=== PATIENT | male | born 1980 | race Caucasian/White ===

== ENCOUNTER 2021-10-07 08:24 | Emergency (ER) | payer MEDICAID ==
[~2021-10-07] VITALS: Ht 165.1 cm; Wt 65.8 kg
--- NOTE | 2021-10-07 08:25 | NUR ---
TO ER BED 9, BIB SELF C/O L SIDED CHEST PAIN NON RADIATING STARTED YESTERDAY ON AND OFF "IM OUT OF BLOOD THINNERS FOR 2 DAYS.", AAOX3, BREATHING EVEN AND NON LABORED, CONNECTED TO MONITOR, AWAITING MD SINGH
--- NOTE | 2021-10-07 08:47 | NUR ---
SALINE LOCK ESTABLISHED, BLOOD DRAWN AND SENT TO LAB
[2021-10-07 09:09] LABS: BASOPHILS % (AUTO) 0.4 % (0.0-2.0); EOSINOPHILS % (AUTO) 1.1 % (0.0-6.0); HEMATOCRIT 41 % (39-51); HEMOGLOBIN 13.9 g/dL (13.5-17.5); LYMPHOCYTES # (AUTO) 1.1 K/uL (0.8-4.8); LYMPHOCYTES % (AUTO) 23.6 % (20.0-44.0); MEAN CORPUSCULAR HGB CONC 34 g/dl (31.0-36.0); MEAN CORPUSCULAR VOLUME 92 fL (80-96); MONOCYTES # (AUTO) 0.5 K/uL (0.1-1.30); MONOCYTES % (AUTO) 10.6 % (2.0-12.0); NEUTROPHILS # (AUTO) 2.9 K/uL (1.8-8.9); NEUTROPHILS % (AUTO) 64.3 % (43.0-81.0); PLATELET COUNT (AUTO) 209 K/uL (150-450); RED BLOOD CELL COUNT(AUTO) 4.43 MIL/uL (4.5-6.0); WHITE BLOOD COUNT (AUTO) 4.5 K/uL (4.3-11.0)
[2021-10-07 09:27] LABS: CHLORIDE 104 mmol/L (98-107); CREATININE 0.9 mg/dL (0.6-1.3); GLUCOSE 76 mg/dL (74-106); POTASSIUM 4.2 mmol/L (3.5-5.1); SODIUM SERUM 141 mmol/L (136-145); UREA NITROGEN, BLOOD 15 mg/dL (7-18)
--- NOTE | 2021-10-07 09:28 | NUR ---
COVID SWAB DONE AND SENT TO LAB
[2021-10-07] MEDS ORDERED: CLOPIDOGREL BISULFATE 300 MG TABLET PO ONE (09:30)
[2021-10-07] MEDS ORDERED: NITROGLYCERIN 0.4 MG/TAB BOTTLE SL ONE (09:30)
--- NOTE | 2021-10-07 09:33 | NUR ---
DR CISSE AT BEDSIDE TALKING TO THE PATIENT
[2021-10-07 09:35] LABS: CALCIUM, SERUM 9.4 mg/dL (8.5-10.1); CARBON DIOXIDE 30 mmol/L (21-32)
[2021-10-07] MEDS ORDERED: ATOR80TA PO ×2 (09:51→15:33)
[2021-10-07] MEDS ORDERED: CLOP75TA15 PO ×2 (09:51→15:33)
[2021-10-07] MEDS ORDERED: ENAL20TA18 PO ×2 (09:51→15:33)
[2021-10-07] MEDS ORDERED: CARV12.5 PO ×2 (09:51→15:33)
[2021-10-07] MEDS ORDERED: ASPI-1169 PO ×2 (09:51→15:33)
[2021-10-07] MEDS ORDERED: NITROGLYCERIN 0.4 MG/TAB BOTTLE ONE ×2 (09:55→13:00)
[2021-10-07] MEDS ORDERED: CLOPIDOGREL BISULFATE 75 MG TABLET ONE (09:55)
[2021-10-07] MEDS ORDERED: ENOXAPARIN SODIUM 60 MG/0.6 ML DISP.SYRIN SQ ONE ×2 (09:56→10:00)
[2021-10-07] MEDS ORDERED: ATORVASTATIN 40 MG TABLET PO SCH ×2 (10:00→22:00)
[2021-10-07] MEDS ORDERED: NITROGLYCERIN 0.4 MG/TAB BOTTLE SL PRN ×2 (10:30→13:30)
[2021-10-07] MEDS ORDERED: ONDANSETRON HCL/PF 4 MG/2 ML VIAL IVP PRN (10:30)
[2021-10-07] MEDS ORDERED: MORPHINE SULFATE INJ 2 MG/ML DISP.SYRIN IV PRN (10:30)
[2021-10-07] MEDS ORDERED: MAG HYDROX/AL HYDROX/SIMETH 30 ML UDC PO PRN (10:30)
[2021-10-07] MEDS ORDERED: ACETAMINOPHEN 325 MG TABLET PO PRN (12:00)
[2021-10-07] MEDS ORDERED: METOPROLOL TARTRATE INJ 5 MG/5 ML AMPUL ONE ×4 (13:00→13:53)
[2021-10-07] MEDS ORDERED: IOHEXOL-350 100 ML VIAL IV ONE (13:00)
[2021-10-07] MEDS ORDERED: CT SWABBABLE VALVE TRANS SET 1 EA INFUS.SET MC ONE (13:00)
[2021-10-07] MEDS ORDERED: IV NS 0.9% 250 ML IV ONE (13:01)
[2021-10-07] MEDS: METOPROLOL TARTRATE INJ 5 MG/5 ML AMPUL IVP PRN ×11 (13:10→14:32)
--- NOTE | 2021-10-07 13:21 | NUR ---
TAKEN TO CT FOR CTA
--- NOTE | 2021-10-07 13:31 | NUR ---
room 315-2
--- NOTE | 2021-10-07 14:32 | NUR ---
CALLED FOR REPORT, WANTS BEDSIDE REPORT PER ISHA CHARGE NURSE
[2021-10-07 14:43] VITALS: BP 104/74
--- NOTE | 2021-10-07 16:17 | NUR ---
Patient discharged to home in stable condition. Written and verbal after care instructions given. Patient verbalizes understanding of instruction. As ordered by Dr. Butterfield. Prescription sent to prefered pharmacy. Left in stable condition, denies any pain or discomfort, nor chest pain.
[2021-10-07] MEDS ORDERED: CARVEDILOL 12.5 MG TABLET PO SCH (17:00)
[2021-10-07] MEDS ORDERED: Z GUARD REMEDY 4 OZ OINT TP PRN (17:00)
[2021-10-07] MEDS ORDERED: ENOXAPARIN SODIUM 60 MG/0.6 ML DISP.SYRIN SQ SCH (21:00)
[2021-10-07] MEDS ORDERED: MAGNESIUM HYDROXIDE 30 ML UDC PO PRN (22:00)
[2021-10-07] MEDS ORDERED: Medication Not On Formulary EA (Atorvastatin Calcium (Lipitor) 80 MG) PO SCH (22:00)
[2021-10-08] MEDS ORDERED: CLOPIDOGREL BISULFATE 75 MG TABLET PO SCH (09:00)
[2021-10-08] MEDS ORDERED: ASPIRIN 325 MG TABLET PO SCH (09:00)
[2021-10-08] MEDS ORDERED: ENALAPRIL MALEATE (10 MG) 10 MG TABLET PO SCH (09:00)
[2021-10-08] MEDS ORDERED: Medication Not On Formulary EA (Enalapril Maleate 20 MG) PO SCH (09:00)
[2021-10-08] MEDS ORDERED: ASPIRIN 81 MG TAB.CHEW PO SCH (09:00)
== END 2021-10-07 16:17 | disposition home or self-care (01) ==
LOC: ER 08:30 → TRANSITION 12:11 → UNDOADMIN 12:11 → TELE 14:34 → TRANSITION 14:34 → TELE 16:17
DX: I25.110 Atherosclerotic heart disease of native coronary artery with unstable angina pectoris (principal); Z95.5 Presence of coronary angioplasty implant and graft; Z79.02 Long term (current) use of antithrombotics/antiplatelets; T45.526A Underdosing of antithrombotic drugs, initial encounter; Y92.89 Other specified places as the place of occurrence of the external cause; E78.5 Hyperlipidemia, unspecified; Z79.899 Other long term (current) drug therapy; I10 Essential (primary) hypertension; Z20.822 Contact with and (suspected) exposure to COVID-19
CPT/HCPCS: 36415; 71045; 75574; 80048; 83880; 84484; 85025; 85730; 87081; 87426; 93005; 93307; 96372; 96374; 96376; 99291; C9803; J1650; J3490 ×4; J7050; Q9967

== ENCOUNTER 2022-01-14 16:37 | Emergency (ER) | payer SELFPAY ==
[~2022-01-14] VITALS: Ht 167.6 cm; Wt 80.3 kg
[~2022-01-14 16:37] MED LIST: ASPI-1169 PO; ATOR80TA PO; CARV12.5 PO; CLOP75TA15 PO; ENAL20TA18 PO
--- NOTE | 2022-01-14 16:55 | NUR ---
BIBS C/O TESTICULAR PAIN, REDNESS, AND SWELLING WITH BLOOD IN SEMEN P/S 6/10 X3DAYS. VITALS ARE WITH NORMAL LIMITS. AWAITING MD SINGH.
[2022-01-14 18:50] LABS: BILIRUBIN,URINE NEGATIVE (NEGATIVE); COLOR,URINE YELLOW (YELLOW); LEUKOCYTE ESTERASE ,URINE NEGATIVE (NEGATIVE); NITRITE, URINE NEGATIVE (NEGATIVE); PROTEIN,URINE NEGATIVE (NEGATIVE); UGLUCOSE NEGATIVE (NEGATIVE)
[2022-01-14 19:14] LABS: BACTERIA,URINE None seen /HPF (None Seen); RBC,URINE 0-2 /HPF (0-2); SQUAMOUS EPITHELIAL CELL,UR 0-2 /HPF (None Seen); WBC,URINE 0-2 /HPF (0-3)
[2022-01-14] MEDS ORDERED: DOXY100C2 PO (20:11)
[2022-01-14] MEDS ORDERED: CEFTRIAXONE 500 MG VIAL IM ONE (20:30)
[2022-01-14] MEDS ORDERED: CEFTRIAXONE 500 MG VIAL ONE (20:35)
[2022-01-14 20:38] VITALS: BP 121/70
--- NOTE | 2022-01-14 20:38 | NUR ---
Patient discharged to home in stable condition. Written and verbal after care instructions given. Patient verbalizes understanding of instruction.
== END 2022-01-14 20:39 | disposition home or self-care (01) ==
LOC: ER 16:39
DX: N45.1 Epididymitis (principal); Z79.899 Other long term (current) drug therapy; Z79.82 Long term (current) use of aspirin
CPT/HCPCS: 99284; 96372; 76870; 87086; 81001; 87491; 87591; J0696

== ENCOUNTER 2022-04-08 16:19 | Emergency (ER) | payer SELFPAY ==
[~2022-04-08] VITALS: Ht 154.9 cm; Wt 77.6 kg
[~2022-04-08 16:19] MED LIST changes: +DOXY100C2 PO
--- NOTE | 2022-04-08 17:45 | NUR ---
RECEVED PT 41 YRS MALE walking in WATING IN WATING ROOM HERE FOR MEDICTION REFFELED AWAKE AND Awake and alert respirtion spont and easy
--- NOTE | 2022-04-08 18:15 | NUR ---
BLOOD DROW BY LAB TACH
[2022-04-08 18:26] LABS: BASOPHILS % (AUTO) 0.4 % (0.0-2.0); HEMATOCRIT 41 % (39-51); HEMOGLOBIN 13.9 g/dL (13.5-17.5); LYMPHOCYTES # (AUTO) 1.5 K/uL (0.8-4.8); LYMPHOCYTES % (AUTO) 26.4 % (20.0-44.0); MEAN CORPUSCULAR HGB CONC 34 g/dl (31.0-36.0); MEAN CORPUSCULAR VOLUME 93 fL (80-96); MONOCYTES # (AUTO) 0.7 K/uL (0.1-1.30); MONOCYTES % (AUTO) 11.8 % (2.0-12.0); NEUTROPHILS # (AUTO) 3.4 K/uL (1.8-8.9); NEUTROPHILS % (AUTO) 60.4 % (43.0-81.0); PLATELET COUNT (AUTO) 187 K/uL (150-450); RED BLOOD CELL COUNT(AUTO) 4.44 MIL/uL (4.5-6.0); WHITE BLOOD COUNT (AUTO) 5.6 K/uL (4.3-11.0)
--- NOTE | 2022-04-08 18:45 | NUR ---
C X RAY DONE AT BED SIDE
[2022-04-08 19:01] LABS: CALCIUM, SERUM 8.7 mg/dL (8.5-10.1); CARBON DIOXIDE 29 mmol/L (21-32); CHLORIDE 106 mmol/L (98-107); CREATININE 0.9 mg/dL (0.6-1.3); GLUCOSE 98 mg/dL (74-106); POTASSIUM 3.7 mmol/L (3.5-5.1); SODIUM SERUM 138 mmol/L (136-145); UREA NITROGEN, BLOOD 20 mg/dL (7-18)
[2022-04-08] MEDS ORDERED: ASPI-1420 PO (19:06)
[2022-04-08] MEDS ORDERED: CLOP75TA15 PO (19:06)
[2022-04-08] MEDS ORDERED: ENAL20TA18 PO (19:06)
--- NOTE | 2022-04-08 19:33 | NUR ---
HAND OFF JOEY GALVEZ
[2022-04-08] MEDS ORDERED: ATOR40TA PO (19:39)
[2022-04-08] MEDS ORDERED: CARV12.52 PO (19:39)
[2022-04-08 19:41] VITALS: BP 119/81
--- NOTE | 2022-04-08 19:41 | NUR ---
Patient discharged to home in stable condition. Written and verbal after care instructions given. Patient verbalizes understanding of instruction.
== END 2022-04-08 19:43 | disposition home or self-care (01) ==
LOC: ER 16:25
DX: R07.9 Chest pain, unspecified (principal); Z76.0 Encounter for issue of repeat prescription; I10 Essential (primary) hypertension; E78.00 Pure hypercholesterolemia, unspecified; Z79.899 Other long term (current) drug therapy
CPT/HCPCS: 36415; 71045-TC; 80048-TC; 84484-TC; 85025-TC

== ENCOUNTER → 2022-05-14 | Emergency (ER) | payer MEDICAID ==
[~2022-05-14] VITALS: Ht 167.6 cm; Wt 62.6 kg
[~2022-05-14] MED LIST changes: +ASPI-1420 PO; +ATOR40TA PO; +CARV12.52 PO
--- NOTE | 2022-05-14 11:50 | NUR ---
PT DISCHARGED AT THIS TIME WITH MED REFILL.
[2022-05-14 12:37] VITALS: BP 135/87
== END | disposition home or self-care (01) ==
LOC: ER 11:53
DX: Z76.0 Encounter for issue of repeat prescription (principal); I10 Essential (primary) hypertension; E78.00 Pure hypercholesterolemia, unspecified; Z79.899 Other long term (current) drug therapy

== ENCOUNTER 2022-05-22 16:02 | Emergency (ER) | payer MEDICAID ==
[~2022-05-22] VITALS: Ht 165.1 cm; Wt 68.0 kg
--- NOTE | 2022-05-22 16:25 | NUR ---
RECEIVED PT 41 YRS MALE CAME FROM HOME C/O HEADACH, CHEST PAIN FOR 2 DAYS NO SOB OR distress
--- NOTE | 2022-05-22 16:30 | NUR ---
RESTING AT THIS TIME
--- NOTE | 2022-05-22 16:30 | NUR ---
BLOOD DROW BY LAB TACH
[2022-05-22] MEDS ORDERED: ACETAMINOPHEN ES 500 MG TABLET ONE (16:58)
[2022-05-22] MEDS ORDERED: diphenhydrAMINE HCL 25 MG CAPSULE ONE (17:00)
[2022-05-22] MEDS ORDERED: PROCHLORPERAZINE EDISYLATE 10 MG/2 ML VIAL IM ONE (17:00)
[2022-05-22] MEDS ORDERED: diphenhydrAMINE HCL 25 MG CAPSULE PO ONE (17:00)
[2022-05-22] MEDS ORDERED: ACETAMINOPHEN ES 500 MG TABLET PO ONE (17:00)
[2022-05-22] MEDS ORDERED: PROCHLORPERAZINE EDISYLATE 10 MG/2 ML VIAL ONE (17:00)
[2022-05-22] MEDS ORDERED: PROCHLORPERAZINE EDISYLATE 10 MG/2 ML VIAL IVP ONE (17:00)
--- NOTE | 2022-05-22 17:01 | NUR ---
RESTING AND ASLEEPY
--- NOTE | 2022-05-22 17:02 | NUR ---
VITAL SIGNS WITHIN NORMAL LIMITS.
[2022-05-22 17:14] LABS: BASOPHILS % (AUTO) 0.4 % (0.0-2.0); EOSINOPHILS % (AUTO) 1.3 % (0.0-6.0); HEMATOCRIT 39 % (39-51); HEMOGLOBIN 13.2 g/dL (13.5-17.5); LYMPHOCYTES # (AUTO) 1.2 K/uL (0.8-4.8); LYMPHOCYTES % (AUTO) 21.8 % (20.0-44.0); MEAN CORPUSCULAR HGB CONC 33 g/dl (31.0-36.0); MEAN CORPUSCULAR VOLUME 93 fL (80-96); MONOCYTES # (AUTO) 0.5 K/uL (0.1-1.30); MONOCYTES % (AUTO) 9.7 % (2.0-12.0); NEUTROPHILS # (AUTO) 3.5 K/uL (1.8-8.9); NEUTROPHILS % (AUTO) 66.8 % (43.0-81.0); PLATELET COUNT (AUTO) 185 K/uL (150-450); RED BLOOD CELL COUNT(AUTO) 4.22 MIL/uL (4.5-6.0); WHITE BLOOD COUNT (AUTO) 5.3 K/uL (4.3-11.0)
[2022-05-22 17:35] LABS: CALCIUM, SERUM 8.9 mg/dL (8.5-10.1); CARBON DIOXIDE 28 mmol/L (21-32); CHLORIDE 104 mmol/L (98-107); CREATININE 0.8 mg/dL (0.6-1.3); GLUCOSE 96 mg/dL (74-106); POTASSIUM 3.6 mmol/L (3.5-5.1); SODIUM SERUM 138 mmol/L (136-145); UREA NITROGEN, BLOOD 15 mg/dL (7-18)
[2022-05-22 17:38] LABS: ALANINE AMINOTRANSFERASE 23 U/L (12-78); ALBUMIN 3.9 g/dL (3.4-5.0); ALKALINE PHOSPHATASE 93 U/L (46-116); ASPARTATE AMINOTRANSFERASE 23 U/L (15-37); BILIRUBIN,DIRECT 0.3 mg/dL (0.0-0.2); BILIRUBIN,TOTAL 1.4 mg/dL (0.2-1.0); TOTAL PROTEIN, SERUM 7.4 g/dL (6.4-8.2)
--- NOTE | 2022-05-22 19:00 | NUR ---
NO CHEST PAIN NO HEADACH AT THIS TIME
--- NOTE | 2022-05-22 19:15 | NUR ---
BLOOD DROW FOR TROPONIN
--- NOTE | 2022-05-22 19:30 | NUR ---
HAND OFF TO BHAVESH GALVEZ
[2022-05-22] MEDS ORDERED: ENAL20TA18 PO (20:29)
[2022-05-22 20:57] VITALS: BP 132/75
--- NOTE | 2022-05-22 20:57 | NUR ---
Patient discharged to home in stable condition. Written and verbal after care instructions given. Patient verbalizes understanding of instruction.
== END 2022-05-22 20:57 | disposition home or self-care (01) ==
LOC: ER 16:10
DX: R51.9 Headache, unspecified (principal); R07.89 Other chest pain; Z76.0 Encounter for issue of repeat prescription; I10 Essential (primary) hypertension; I25.2 Old myocardial infarction; E78.00 Pure hypercholesterolemia, unspecified; Z79.899 Other long term (current) drug therapy
CPT/HCPCS: 99285; 71045; 96372; 93005; 85025; 80048; 80076; 36415; 84484 ×2; J0780; Q0163

== ENCOUNTER 2024-07-09 05:22 | Inpatient (IN) | payer MEDICAID ==
[~2024-07-09] VITALS: Ht 165.1 cm; Wt 63.5 kg
[2024-07-09 06:09] LABS: BASOPHILS % (AUTO) 0.3 % (0.0-2.0); EOSINOPHILS # (AUTO) 0.1 K/uL (0.0-0.7); EOSINOPHILS % (AUTO) 1.4 % (0.0-6.0); HEMATOCRIT 42 % (39-51); HEMOGLOBIN 14.6 g/dL (13.5-17.5); LYMPHOCYTES # (AUTO) 1.2 K/uL (0.8-4.8); LYMPHOCYTES % (AUTO) 23.3 % (20.0-44.0); MEAN CORPUSCULAR HEMOGLOBIN 32 PG (26.0-33.0); MEAN CORPUSCULAR HGB CONC 35 g/dl (31.0-36.0); MEAN CORPUSCULAR VOLUME 91 fL (80-96); MONOCYTES # (AUTO) 0.4 K/uL (0.1-1.30); MONOCYTES % (AUTO) 8.6 % (2.0-12.0); NEUTROPHILS # (AUTO) 3.4 K/uL (1.8-8.9); NEUTROPHILS % (AUTO) 66.4 % (43.0-81.0); PLATELET COUNT (AUTO) 180 K/uL (150-450); RED BLOOD CELL COUNT(AUTO) 4.65 MIL/uL (4.5-6.0); RED CELL DISTRIBUTION WIDTH 13.5 % (11.5-15.0); WHITE BLOOD COUNT (AUTO) 5.1 K/uL (4.3-11.0)
[2024-07-09 06:16] LABS: CALCIUM, SERUM 8.7 mg/dL (8.5-10.1); CARBON DIOXIDE 29 mmol/L (21-32); CHLORIDE 105 mmol/L (98-107); CREATININE 0.8 mg/dL (0.6-1.3); GLUCOSE 104 mg/dL (74-106); POTASSIUM 4.3 mmol/L (3.5-5.1); SODIUM SERUM 140 mmol/L (136-145); UREA NITROGEN, BLOOD 16 mg/dL (7-18)
[2024-07-09] MEDS ORDERED: ASPIRIN 325 MG TABLET ONE (06:30)
[2024-07-09] MEDS ORDERED: MECLIZINE HCL 25 MG TABLET ONE (06:30)
[2024-07-09] MEDS: ASPIRIN 325 MG TABLET PO ONE (06:35)
[2024-07-09] MEDS: MECLIZINE HCL 12.5 MG TABLET PO ONE (06:35)
[2024-07-09] MEDS ORDERED: ATOR40TA PO (07:53)
[2024-07-09] MEDS ORDERED: Z GUARD REMEDY 4 OZ OINT TP PRN (08:30)
[2024-07-09] MEDS ORDERED: ZOLPIDEM TARTRATE 5 MG TABLET PO PRN (08:30)
[2024-07-09] MEDS ORDERED: ACETAMINOPHEN 325 MG TABLET PO PRN (08:30)
[2024-07-09] MEDS ORDERED: MAG HYDROX/AL HYDROX/SIMETH 30 ML UDC PO PRN (08:30)
[2024-07-09] MEDS ORDERED: MAGNESIUM HYDROXIDE 30 ML UDC PO PRN (08:30)
[2024-07-09] MEDS ORDERED: ONDANSETRON HCL/PF 4 MG/2 ML VIAL IVP PRN (08:30)
[2024-07-09] MEDS ORDERED: CARVEDILOL 12.5 MG TABLET PO SCH (09:00)
[2024-07-09] MEDS ORDERED: CARVEDILOL 6.25 MG TABLET PO SCH (10:30)
[2024-07-09 10:46] VITALS: BP 132/94; TEMP 98.2; O2SAT 98
[2024-07-09 11:22] LABS: CHOLESTEROL 233 mg/dL (<200); HDL CHOLESTEROL 60 mg/dL (40-60); LDL 145 mg/dL (0-99); TRIGLYCERIDES 92 mg/dL (30-150)
[2024-07-09] MEDS: IV NS 0.9% 1,000 ML IV PRN (11:35)
[2024-07-09] MEDS: ENOXAPARIN SODIUM 40 MG/0.4 ML DISP.SYRIN SQ SCH (11:43)
[2024-07-09] MEDS: CLOPIDOGREL BISULFATE 75 MG TABLET PO SCH (12:33)
[2024-07-09] MEDS ORDERED: IV NS 0.9% 250 ML IV ONE (16:03)
[2024-07-09] MEDS ORDERED: CT SWABBABLE VALVE TRANS SET 1 EA INFUS.SET MC ONE (16:03)
[2024-07-09] MEDS ORDERED: IOHEXOL-350 100 ML VIAL IV ONE (16:03)
[2024-07-09] MEDS: METOPROLOL TARTRATE INJ 5 MG/5 ML AMPUL IVP PRN (16:20)
[2024-07-09] MEDS ORDERED: METOPROLOL TARTRATE INJ 5 MG/5 ML AMPUL ONE ×2 (16:21→16:28)
[2024-07-09] MEDS ORDERED: NITROGLYCERIN 0.4 MG/TAB BOTTLE ONE (16:22)
[2024-07-09] MEDS: NITROGLYCERIN 0.4 MG/TAB BOTTLE SL ONE (16:36)
[2024-07-09 20:00] VITALS: BP 99/74; TEMP 97.9; O2SAT 98
[2024-07-09] MEDS: ATORVASTATIN 40 MG TABLET PO SCH (21:28)
[2024-07-10] VITALS: BP 96/62; TEMP 97.7; O2SAT 99
[2024-07-10 04:00] VITALS: BP 104/79; TEMP 97.7; O2SAT 100
[2024-07-10 08:00] VITALS: BP 121/82; TEMP 98.1; O2SAT 100
[2024-07-10 08:11] LABS: BASOPHILS % (AUTO) 0.4 % (0.0-2.0); EOSINOPHILS # (AUTO) 0.1 K/uL (0.0-0.7); EOSINOPHILS % (AUTO) 1.2 % (0.0-6.0); HEMATOCRIT 41 % (39-51); HEMOGLOBIN 14.4 g/dL (13.5-17.5); LYMPHOCYTES # (AUTO) 0.9 K/uL (0.8-4.8); MEAN CORPUSCULAR HEMOGLOBIN 32 PG (26.0-33.0); MEAN CORPUSCULAR HGB CONC 35 g/dl (31.0-36.0); MEAN CORPUSCULAR VOLUME 91 fL (80-96); MONOCYTES # (AUTO) 0.4 K/uL (0.1-1.30); MONOCYTES % (AUTO) 9.9 % (2.0-12.0); NEUTROPHILS % (AUTO) 67.5 % (43.0-81.0); PLATELET COUNT (AUTO) 161 K/uL (150-450); RED BLOOD CELL COUNT(AUTO) 4.56 MIL/uL (4.5-6.0); RED CELL DISTRIBUTION WIDTH 13.6 % (11.5-15.0); WHITE BLOOD COUNT (AUTO) 4.4 K/uL (4.3-11.0)
[2024-07-10 08:24] VITALS: BP 121/82
[2024-07-10] MEDS: PANTOPRAZOLE 40 MG TABLET.DR PO SCH (08:24)
[2024-07-10] MEDS: CARVEDILOL 12.5 MG TABLET PO SCH (08:24)
[2024-07-10] MEDS: LISINOPRIL (20MG) 20 MG TABLET PO SCH (08:24)
[2024-07-10 08:33] LABS: CALCIUM, SERUM 8.9 mg/dL (8.5-10.1); CREATININE 0.8 mg/dL (0.6-1.3); MAGNESIUM 2.1 mg/dL (1.8-2.4); PHOSPHORUS 3.5 mg/dL (2.5-4.9); POTASSIUM 4.2 mmol/L (3.5-5.1)
[2024-07-10] MEDS ORDERED: CARV12.52 PO (08:35)
[2024-07-10] MEDS ORDERED: ROSU40TA PO (08:35)
[2024-07-10 08:55] LABS: THYROID STIMULATING HORMONE 0.81 uIU/mL (0.358-3.74)
== END 2024-07-10 08:56 | disposition home or self-care (01) | DRG 198 ==
LOC: ER 05:22 → TELE1 10:11 → MEDSG1 07-10 08:07
PROVIDERS: ADMIT Student in an Organized Health Care Education/Training Program; ATTEND Student in an Organized Health Care Education/Training Program
DX: I25.10 Atherosclerotic heart disease of native coronary artery without angina pectoris (principal); I11.0 Hypertensive heart disease with heart failure; I50.9 Heart failure, unspecified; E78.5 Hyperlipidemia, unspecified; I25.2 Old myocardial infarction; Z95.5 Presence of coronary angioplasty implant and graft; Z79.82 Long term (current) use of aspirin; Z79.899 Other long term (current) drug therapy
CPT/HCPCS: 36415; 71045-TC; 75574; 80048-TC; 80061-TC; 83735-TC; 84100-TC; 84443-TC; 84484-TC; 85025-TC; 93307-TC; 97112-TC; 97116-TC; 97530-TC; G0378; J1650; J3490; J7030; J7050; J8597; Q9967